=== PATIENT | male | born 1945 | race Caucasian/White ===

== ENCOUNTER 2020-07-19 02:09 | Outpatient (CLI) | payer MEDICARE, BC, SELFPAY ==
[2020-07-19 18:37] LABS: SARS-CoV-2 RNA PCR Negative
== END 2020-07-19 02:10 | disposition home or self-care (01) ==
LOC: ANHCOVIDDT 02:09
PROVIDERS: PCP Family Medicine; Visit Provider Internal Medicine Gastroenterology
DX: Z01.812 Encounter for preprocedural laboratory examination (principal); Z20.822 Contact with and (suspected) exposure to COVID-19
CPT/HCPCS: C9803; U0003; U0005

== ENCOUNTER 2020-07-22 02:18 | Day surgery (SDC) | payer MEDICARE, BC, SELFPAY ==
[2020-07-11 13:34] VITALS: BMI 27.7
[2020-07-22 08:32] VITALS: BP 147/71; PULSE 83; RESP 18; TEMP 36.4; O2SAT 96; BMI 26.9
[2020-07-22] MEDS: LACTATED RINGERS 1,000 ML 150 ML IV CONT (08:41)
--- NOTE | 2020-07-22 09:06 | WPDANESEPPF ---
Anes - Initial Pre Proc Eval Procedure: Operation Date: 07/22/20 09:30 Proposed Procedures p Esophagogastroduodenoscopy - Marshall Dupont MD Date/Time: 07/22/20 09:06 Surgeon: Marshall Dupont MD Pre Op Diagnosis: Dsyphagia Patient Data Age: 74 Gender: M Height: 5 ft 9 in Weight: 82.8 kg Last Vital Signs Temp 97.5 F L 07/22/20 08:32 Pulse 83 07/22/20 08:32 Resp 18 07/22/20 08:32 BP 147/71 H 07/22/20 08:32 Pulse Ox 96 07/22/20 08:32 Allergies Allergy/AdvReac Type Severity Reaction Status Date / Time No Known Allergies Allergy Unknown NONE Verified 07/22/20 08:30 Home Medications Medication Instructions Recorded Confirmed Type ascorbic acid (vitamin C) 500 mg 500 mg PO DAILY 06/14/20 07/11/20 History capsule mecobalamin (vitamin B12) 1,000 1,000 mcg PO DAILY 06/14/20 07/11/20 History mcg chewable tablet omeprazole 40 mg capsule,delayed 40 mg PO DAILY 06/14/20 07/22/20 History release rosuvastatin 10 mg tablet 10 mg PO EVERY OTHER DAY 06/14/20 07/11/20 History tamsulosin 0.4 mg capsule 0.4 mg PO DAILY PRN 06/14/20 07/22/20 History Patient hx anesthesia problems: none Family hx anesthesia problems: none PMFSH Past Medical History Medical History (Updated 06/14/20 @ 15:00 by Marshall Dupont MD) Adenomatous colon polyp GERD without esophagitis Seasonal allergies Family History Family History Other Family history of arthritis Family history of premature coronary heart disease Social History Social History Smoking status: Never smoker Alcohol intake: current Drinks per week: 6 Alcohol use details: beer Living arrangements: alone Gender identity (if verbalized by the patient): Male Spiritual care concerns: No Anes - Eval Final PreProcedure Day of Procedure 07/22/20 09:06 Patient weight: overweight Heart: regular rate and rhythm Airway: Mallampati scale class II Neurological: alert and oriented Last oral intake: >/= 8 hours ASA classification: II Emergent: no Anesthetic plan: proceed Anesthesia type and monitoring: general GIVS and standard monitoring Informed Consent: The patient's anesthetic plan and its attendant risks and benefits were discussed with the patient/family/POA. Questions were solicited and answers provided to the satisfaction of the patient/family/POA.
--- NOTE | 2020-07-22 09:16 | PM.HPGS ---
History of Present Illness History of Present Illness Consent: Risks, benefits, and alternatives have been discussed and questions answered. Patient agrees to proceed with procedure. Chief complaint: Dsyphagia Narrative: Doron Johnson is a 74 year old male with dysphagia, on ppi Review of Systems Constitutional: Constitutional: Denies headache(s) and Denies weakness Eyes: Eyes: Denies blurry vision ENT: Reports Normal hearing present, Denies headache(s) and Denies neck pain Cardiovascular: Cardiovascular: Denies chest pain and Denies dyspnea Respiratory: Respiratory: Denies dyspnea Gastrointestinal: Gastrointestinal: Reports no additional gastrointestinal complaints Genitourinary: Genitourinary: Denies dysuria Musculoskeletal: Musculoskeletal: Denies neck pain Integumentary/Breasts: Skin/Breast: Denies dry skin Neurologic: Reports Normal hearing present, Denies headache(s) and Denies weakness Psychiatric: Psychiatric: Denies anxiety Endocrine: Endocrine: Denies change in body appearance Hematologic/Lymphatic: Hematologic/Lymphatic: Denies easy bleeding Allergic/Immunologic: Allergic/Immunologic: Denies urticaria PMF Past Medical History Medical History (Updated 07/22/20 @ 09:16 by Marshall Dupont MD) Adenomatous colon polyp Dysphagia GERD without esophagitis Seasonal allergies Family History Family History Other Family history of arthritis Family history of premature coronary heart disease Social History Social History Smoking status: Never smoker Alcohol intake: current Drinks per week: 6 Alcohol use details: beer Living arrangements: alone Gender identity (if verbalized by the patient): Male Spiritual care concerns: No Meds Home Medications and Allergies Home Medications Medication Instructions Recorded Confirmed Type ascorbic acid (vitamin C) 500 mg 500 mg PO DAILY 06/14/20 07/11/20 History capsule mecobalamin (vitamin B12) 1,000 1,000 mcg PO DAILY 06/14/20 07/11/20 History mcg chewable tablet omeprazole 40 mg capsule,delayed 40 mg PO DAILY 06/14/20 07/22/20 History release rosuvastatin 10 mg tablet 10 mg PO EVERY OTHER DAY 06/14/20 07/11/20 History tamsulosin 0.4 mg capsule 0.4 mg PO DAILY PRN 06/14/20 07/22/20 History Allergies Allergy/AdvReac Type Severity Reaction Status Date / Time No Known Allergies Allergy Unknown NONE Verified 07/22/20 08:30 Vital Signs Vital Signs - 24 hr 07/22/20 08:32 Temperature 97.5 F L Pulse Rate 83 Respiratory Rate 18 Blood Pressure 147/71 H Pulse Oximetry 96 Exam Const: General: comfortable and no acute distress HENMT: General nose exam: Normal nares present Eyes: General: appearance normal, both eyes and all related structures Neck: Neck: no JVD Resp: Auscultation: clear to auscultation bilaterally Cardio: Rate: regular rate Rhythm: regular rhythm GI: Inspection: non-distended GI Palp: Yes Soft to palpation Skin: General skin exam: normal color Neuro: General: gait normal Speech: normal speech Extrem: General: normal to inspection Psych: Mental Status: mental status grossly normal Assessment and Plan Assessment and plan (1) GERD without esophagitis: Code(s): K21.9 - Gastro-esophageal reflux disease without esophagitis Status: Acute (2) Dysphagia: Code(s): R13.10 - Dysphagia, unspecified Status: Acute Assessment and Plan: will proceed with egd
[2020-07-22] MEDS: BENZOCAINE (*SP) 60 ML SPRAY CAN (HURRICAINE) 1 SPRAY MUCOUS MEM (09:23)
[2020-07-22 09:43] VITALS: BP 112/74; PULSE 74; RESP 16; O2SAT 96
[2020-07-22 09:53] VITALS: BP 101/67; PULSE 68; RESP 20; O2SAT 96
[2020-07-22 10:03] VITALS: BP 114/79; PULSE 66; RESP 20; O2SAT 97
== END 2020-07-22 10:25 | disposition home or self-care (01) ==
PROVIDERS: PCP Family Medicine; Visit Provider Internal Medicine Gastroenterology
PROC: 0DJ08ZZ Inspection of Upper Intestinal Tract, Via Natural or Artificial Opening Endoscopic (ICD-10-PCS; CPT 43235; principal; 2020-07-22 09:30)
DX: K22.5 Diverticulum of esophagus, acquired (principal); K44.9 Diaphragmatic hernia without obstruction or gangrene; K22.2 Esophageal obstruction; K29.50 Unspecified chronic gastritis without bleeding; K21.00 Gastro-esophageal reflux disease with esophagitis, without bleeding
CPT/HCPCS: 43239; 43249; 88305; C1726; J2704; J7120

== ENCOUNTER 2024-03-30 09:17 | Outpatient (CLI) | payer MEDICARE, BC, SELFPAY ==
--- NOTE | ~2024-03-30 | XR_ITS ---
Left Hand Technique: PA, oblique, and lateral views were obtained. Clinical History: Arthritis Findings: No acute fracture or dislocation is seen. 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 There is severe arthritis of the first CMC joint and interphalangeal joint of t he thumb. There are scattered mild degenerative change in the remaining interphalangeal joints of the fingers.. Soft tissues are unremarkable. Impression: Degenerative changes, as detailed above. Reviewed, dictated and finalized at location M. Impression: Degenerative changes, as detailed above.
== END 2024-03-30 09:18 | disposition home or self-care (01) ==
PROVIDERS: PCP Family Medicine; Visit Provider Orthopaedic Surgery
DX: M79.642 Pain in left hand (principal)
CPT/HCPCS: 73130

== ENCOUNTER 2024-08-10 09:43 | Day surgery (SDC) | payer MEDICARE, BC, SELFPAY ==
[2024-07-28 11:35] VITALS: BMI 2703.0
[2024-08-10 10:41] VITALS: BP 128/93; PULSE 77; RESP 16; TEMP 36.8; O2SAT 97
[2024-08-10] MEDS: LACTATED RINGERS 1,000 ML 150 ML IV CONT (10:50)
--- NOTE | 2024-08-10 11:05 | P.PNAN_ITS ---
Anes - Initial Pre Proc Eval Procedure: Operation Date: 08/10/24 12:30 Proposed Procedures p Esophagogastroduodenoscopy - Lico Kramer MD Date/Time: 08/10/24 11:05 Surgeon: Lico Kramer MD Pre Op Diagnosis: Diverticulum of Esophagus Patient Data Age: 78 Gender: M Height: 1.75 m Weight: 84.7 kg Last Vital Signs Temp 36.8 C 08/10/24 10:41 Pulse 77 08/10/24 10:41 Resp 16 08/10/24 10:41 BP 128/93 H 08/10/24 10:41 Pulse Ox 97 08/10/24 10:41 O2 Del Method Room Air 08/10/24 10:41 Allergies Allergy/AdvReac Type Severity Reaction Status Date / Time No Known Allergies Allergy Unknown NONE Verified 08/10/24 10:40 Home Medications ?Medication ?Instructions ?Recorded ?Confirmed ?Type ascorbic acid (vitamin C) 500 mg 500 mg PO DAILY 06/14/20 08/10/24 History capsule mecobalamin (vitamin B12) 1,000 1,000 mcg PO DAILY 06/14/20 08/10/24 History mcg chewable tablet omeprazole 40 mg capsule,delayed 40 mg PO DAILY 06/14/20 08/10/24 History release rosuvastatin 10 mg tablet 10 mg PO EVERY OTHER DAY 06/14/20 08/10/24 History tamsulosin 0.4 mg capsule 0.4 mg PO DAILY PRN urinary 06/14/20 08/10/24 History hesitancy lansoprazole 30 mg capsule,delayed 30 mg PO DAILY #30 caps 07/21/24 08/10/24 Rx release Patient hx anesthesia problems: none Family hx anesthesia problems: none Results Review: All pre-operative results and documents have been reviewed as part of the pre- operative evaluation. [facility] Past Medical History Medical History Arthritis of left hand Trigger finger, left middle finger Zenker diverticulum Dysphagia Adenomatous colon polyp Seasonal allergies GERD without esophagitis Surgical History Surgical History (Updated 08/10/24 @ 11:06 by Doron Kessler MD) History of total hip arthroplasty H/O colonoscopy Family History Family History Other Family history of arthritis Family history of premature coronary heart disease Social History Social History Smoking status: Never smoker Alcohol intake: current Drinks per week: 4 Alcohol use details: beer Substance use type: does not use Living arrangements: alone Gender identity (if verbalized by the patient): Male Spiritual care concerns: No Anes - Eval Final PreProcedure Day of Procedure 08/10/24 11:05 Patient weight: overweight Heart: regular rate and rhythm Lungs: clear to auscultation Airway: Mallampati scale class II Neurological: alert and oriented Last oral intake: >/= 8 hours ASA classification: II Emergent: no Anesthetic plan: proceed Anesthesia type and monitoring: general GIVS and standard monitoring Results Review: All pre-operative results and documents have been reviewed as part of the pre- operative evaluation. Informed Consent: The patient's anesthetic plan and its attendant risks and benefits were discussed with the patient/family/POA. Questions were solicited and answers provided to the satisfaction of the patient/family/POA.
--- NOTE | 2024-08-10 11:09 | PM.IMHP ---
H&P: HPI History of Present Illness Date/Time: 08/10/24 11:09 Chief Complaint: Atypical GERD Narrative: the patient has been complaining of chronic intermittent throat discomforty , and necessity to constantly clear the throat for long time. He did not improve with omeprazole, but seems to have improved with lansoprazole. He denies dysphagia or heartburn. Review of Systems Review of Systems: All systems reviewed & are unremarkable except as noted in HPI and below PMFSH Past Medical History Medical History Arthritis of left hand Trigger finger, left middle finger Zenker diverticulum Dysphagia Adenomatous colon polyp Seasonal allergies GERD without esophagitis Surgical History Surgical History (Updated 08/10/24 @ 11:06 by Doron Kessler MD) History of total hip arthroplasty H/O colonoscopy Family History Family History Other Family history of arthritis Family history of premature coronary heart disease Social History Social History Smoking status: Never smoker Alcohol intake: current Drinks per week: 4 Alcohol use details: beer Substance use type: does not use Living arrangements: alone Gender identity (if verbalized by the patient): Male Spiritual care concerns: No Meds Home Medications and Allergies Home Medications ?Medication ?Instructions ?Recorded ?Confirmed ?Type ascorbic acid (vitamin C) 500 mg 500 mg PO DAILY 06/14/20 08/10/24 History capsule mecobalamin (vitamin B12) 1,000 1,000 mcg PO DAILY 06/14/20 08/10/24 History mcg chewable tablet omeprazole 40 mg capsule,delayed 40 mg PO DAILY 06/14/20 08/10/24 History release rosuvastatin 10 mg tablet 10 mg PO EVERY OTHER DAY 06/14/20 08/10/24 History tamsulosin 0.4 mg capsule 0.4 mg PO DAILY PRN urinary 06/14/20 08/10/24 History hesitancy lansoprazole 30 mg capsule,delayed 30 mg PO DAILY #30 caps 07/21/24 08/10/24 Rx release Allergies Allergy/AdvReac Type Severity Reaction Status Date / Time No Known Allergies Allergy Unknown NONE Verified 08/10/24 10:40 Vital Signs Vital Signs - 24 hr 08/10/24 10:41 Temperature 98.2 F Pulse Rate 77 Respiratory Rate 16 Blood Pressure 128/93 H Pulse Oximetry 97 Oxygen Delivery Room Air Exam Const: General: cooperative and healthy appearing Resp: Effort & Inspection: normal respiratory effort and able to speak in complete sentences Auscultation: clear to auscultation bilaterally Cardio: Rate: regular rate Rhythm: regular rhythm GI: Inspection: normal to inspection GI Palp: No No hepatosplenomegaly present Auscultation: normal bowel sounds Rectal Exam: deferred Skin: General skin exam: normal color Psych: Appearance: grossly normal Mental Status: mental status grossly normal Assessment and Plan Assessment and plan (1) GERD without esophagitis: Code(s): K21.9 - Gastro-esophageal reflux disease without esophagitis Status: Acute Assessment and Plan: The patient is probably suffering from laryngopharyngeal reflux (LPR). an EGD will be performed, however the yield of these test for the diagnosis of LPR is low. A 24 h pH test 2 weeks OFF PPis is indicated if the EGD does not show esophagitis at least Mckenzie Anju
--- OUTSIDE RECORDS SUMMARY | 2024-08-10 11:16 | XMS_ITS | Clinical Summary ---
Author Organization [facility] Address [address] [place] [id number] Care Team Providers Care Ground Operations Supervisor Name Role Phone Estrada Chappell MD Primary Care Provider [phone] Allergies No known active allergies Medications omeprazole 40 MG capsule Take 1 capsule by mouth daily. 10/14/2015 Active rosuvastatin 10 MG tablet Take 1 tablet by mouth daily. 12/14/2016 Active vitamin B-12 (CYANOCOBALAMIN ) 1000 mcg tablet Take 1,000 mcg by mouth every other day. Active tamsulosin 0.4 MG Cap 06/29/2019 Active Active Problems Problem Noted Date Diagnosed Date Right lumbar radiculopathy 01/12/2019 Osteoporosis 01/08/2019 Resolved Problems Problem Noted Date Diagnosed Date Resolved Date Follow-up examination after orthopedic surgery 07/10/2019 03/11/2020 Family History Relation Status Comments Father Mother Social History Tobacco Use Types Packs/Day Years Used Date Smoking Tobacco: Never Smokeless Tobacco: Never Alcohol Use Standard Drinks/Week Comments Yes 0 (1 standard drink = 0.6 oz pur e alcohol) Sex and Gender Information Value Date Recorded Sex Assigned at Not on file 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 Gender Identity Not on file Sexual Orientation Not on file Last Filed Vital Signs Vital Sign Reading Time Taken Comments Blood Pressure 114/63 01/13/2020 9:20 AM CDT Pulse 74 01/13/2020 9:20 AM CDT Temperature 36.6 C (97.8 F) 08/14/2019 12:45 PM BANK VAULT CLERK Respiratory Rate 16 01/13/2020 9:20 AM CDT Oxygen Saturation 96% 01/13/2020 9:20 AM CDT Inhaled Oxygen Concentration - - Weight 83.9 kg (185 lb) 01/13/2020 8:31 AM CDT Height 172.7 cm (5' 8 ) 01/13/2020 8:31 AM CDT Body Mass Index 28.13 01/13/2020 8:31 AM CDT Plan of Treatment Health Maintenance Due Date Last Done Comments Hepatitis C 1962 DTaP, Tdap and Td Vaccines ( 1 - Tdap) 10/14/1963 Zoster Vaccines (1 of 2) 1994 Annual Medicare Wellness Visit 2009 Pneumococcal Vaccine: 65+ Ye ars (1 of 1 - PCV) 2009 RSV Immunization or 60+ Years (1 - 1-dose 75+ series) 10/14/2019 COVID-19 Vaccine ( - 2023-2 5 season) 2024 Influenza Adult (#1) 2024 Meningococcal B Vaccine Aged Out No l onger eligible based on patient's age to complete this topic Meningococcal Vaccine Aged Out No riley josue eligible based on patient's age to complete this topic RSV Immunizations Under 20 Months Aged Out No longer eligible based on patient's age to complete this topic Insurance MEDICARE [facility] Care Teams Ground Operations Supervisor Relationship Specialty Start Date End Date Estrada Chappell MD [address] [place] [phone] PCP - General FAMILY PRACTICE 01/06/19
[2024-08-10 11:59] VITALS: BP 119/64; PULSE 72; RESP 16; O2SAT 97
--- NOTE | 2024-08-10 12:07 | WPDANESPN ---
Anes - Prog Note Post-Op Date/Time: 08/10/24 12:07 Cardiovascular status: normal Respiratory status: normal Airway patency: baseline Mental status: baseline Post-Op hydration status: normal Vital Signs: Last Vital Signs Temp 36.8 C 08/10/24 10:41 Pulse 72 08/10/24 11:59 Resp 16 08/10/24 11:59 BP 119/64 08/10/24 11:59 Pulse Ox 97 08/10/24 11:59 O2 Del Method Room Air 08/10/24 11:59 Pain Score (VAS): 0/10 I/O: Intake & Output 08/09/24 08/10/24 08/10/24 23:59 07:59 15:59 Intake Total 400 Balance 400 Patient Feedback: Patient satisfied with anesthetic care.
[2024-08-10 12:09] VITALS: BP 116/73; PULSE 65; RESP 16; O2SAT 98
[2024-08-10 12:19] VITALS: BP 123/73; PULSE 64; RESP 16; O2SAT 99
== END 2024-08-10 12:43 | disposition home or self-care (01) ==
PROVIDERS: PCP Family Medicine; Visit Provider Internal Medicine Gastroenterology
PROC: 0DJ08ZZ Inspection of Upper Intestinal Tract, Via Natural or Artificial Opening Endoscopic (ICD-10-PCS; CPT 43239; principal; 2024-08-10 12:30)
DX: K21.9 Gastro-esophageal reflux disease without esophagitis (principal); K44.9 Diaphragmatic hernia without obstruction or gangrene; K22.5 Diverticulum of esophagus, acquired
CPT/HCPCS: 43239

== ENCOUNTER 2024-08-10 11:39 | Outpatient (NON) | payer MEDICARE, BC, SELFPAY ==
--- OUTSIDE RECORDS SUMMARY | 2024-08-11 12:57 | XMS_ITS | Clinical Summary ---
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
== END 2024-08-10 11:40 | disposition home or self-care (01) ==
LOC: ANHLAB 08-11 11:42
PROVIDERS: PCP Family Medicine; Visit Provider Internal Medicine Gastroenterology
DX: K44.9 Diaphragmatic hernia without obstruction or gangrene (principal); T47.8X5A Adverse effect of other agents primarily affecting gastrointestinal system, initial encounter; R09.89 Other specified symptoms and signs involving the circulatory and respiratory systems; K22.5 Diverticulum of esophagus, acquired
CPT/HCPCS: 88305

== ENCOUNTER 2024-11-16 09:18 | Outpatient (CLI) | payer MEDICARE, BC, SELFPAY ==
--- NOTE | ~2024-11-16 | XR_ITS ---
XR hand RT min 3V Ordering provider: Jacques Irwin MD History: . M79.641 - Pain in right hand . Comparison: none. FINDINGS: BONES: No acute fracture or dislocation. JOINT SPACES: Narrowing of the proximal and distal interphalangeal joints. Osteoarthritic changes of the second and third metacarpophalangeal joints is seen. Osteoarthritic changes of the first carpomet acarpal and metacarpophalangeal joint is seen. Osteoarthritic changes of the first interphalangeal doris int is also noted. SOFT TISSUES: Normal. IMPRESSION: No acute osseous abnormality right hand. Polyarticular osteoarthritic changes. Reviewed, dictated and finalized at location A.
--- OUTSIDE RECORDS SUMMARY | 2024-11-16 09:44 | XMS_ITS | Clinical Summary ---
Author Organization 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 Gender Identity Not on file Sexual Orientation Not on file Last Filed Vital Signs Vital Sign Reading Time Taken Comments Blood Pressure 114/63 01/13/2020 9:20 AM CDT Pulse 74 01/13/2020 9:20 AM CDT Temperature 36.6 C (97.8 F) 08/14/2019 12:45 PM LOGISTICS ADMINISTRATOR Respiratory Rate 16 01/13/2020 9:20 AM CDT Oxygen Saturation 96% 01/13/2020 9:20 AM CDT Inhaled Oxygen Concentration - - Weight 83.9 kg (185 lb) 01/13/2020 8:31 AM CDT Height 172.7 cm (5' 8 ) 01/13/2020 8:31 AM CDT Body Mass Index 28.13 01/13/2020 8:31 AM CDT Plan of Treatment Health Maintenance Due Date Last Done Comments DTaP, Tdap and Td Vaccines ( 1 - Tdap) 10/14/1964 Pneumococcal Vaccine: 50+ Ye ars (1 of 1 - PCV) 1994 Zoster Vaccines (1 of 2) 1994 Annual Medicare Wellness Visit 2009 RSV Immunization or 60+ Years (1 - 1-dose 75+ series) 10/14/2019 COVID-19 Vaccine ( - 2023-2 5 season) 2024 Meningococcal B Vaccine Aged Out No l onger eligible based on patient's age to complete this topic Meningococcal Vaccine Aged Out No riley josue eligible based on patient's age to complete this topic RSV Immunizations Under 20 Months Aged Out No longer eligible based on patient's age to complete this topic Insurance MEDICARE [facility] Care Teams Checker Relationship Specialty Start Date End Date Estrada Chappell MD [address] [place] [phone] PCP - General FAMILY PRACTICE 01/06/19
== END 2024-11-16 09:19 | disposition home or self-care (01) ==
LOC: CHSIMG 09:19
PROVIDERS: PCP Family Medicine; Visit Provider Orthopaedic Surgery
DX: M79.641 Pain in right hand (principal); M19.041 Primary osteoarthritis, right hand
CPT/HCPCS: 73130